=== PATIENT | male | born 1970 | race Caucasian/White ===

== ENCOUNTER 2018-09-15 11:29 | Observation (INO) ==
[2018-09-15 12:42] LABS: Hematocrit 40.5 % (37.5-50.1); Mean Corpuscular HGB Conc 32.1 g/dL (31.6-35.5); Mean Corpuscular Hemoglobin 30.1 pg (28.0-33.3); Mean Corpuscular Volume 93.8 fL (83.0-100.0); Platelet Count 222 K/mcL (140-400); Red Blood Count 4.32 M/mcL (4.19-5.50); Red Cell Distribution Width 12.5 % (11.5-14.5); White Blood Count 4.1 K/mcL (4.3-11.1)
[2018-09-15 13:23] LABS: BUN/Creatinine Ratio 9 (6-26); Blood Urea Nitrogen 11 mg/dL (6-20); Calcium 7.6 mg/dL (8.6-10.3); Carbon Dioxide 26 mEq/L (23-29); Chloride 104 mEq/L (98-107); Glucose 91 mg/dL (70-105); Osmolality,Calculated 281 (280-300); Potassium 3.9 mEq/L (3.5-5.1); Sodium 136 mEq/L (136-145); eGFR For African Americans > 60 (> 60); eGFR For Non-African Americans > 60 (> 60)
[2018-09-15 13:46] LABS: Lymphocytes # 1.6 K/mcL (0.6-4.6); Monocytes # 0.2 K/mcL (0.0-1.3); Neutrophils # 2.3 K/mcL (1.6-8.9); Platelet Estimate Normal (Normal); Reactive Lymphocytes Present (Not Present)
[2018-09-15] MEDS ORDERED: 0.9 % Sodium Chloride 1,000 ML IVC ONE ×3 (15:14→15:21)
--- NOTE | 2018-09-15 15:28 | Emergency Department Note ---
Disposition Clinical Impression: Dehydration, Ileus, Colitis Disposition: Admitted As Inpatient Condition: Fair Referrals: Chris Chadwick [Primary Care Provider] - Forms: ED Satisfaction Letter Time of Disposition: 19:02 General Adult HPI - General Chief complaint: ED Nausea/Vomiting/Diarrhea Stated complaint: diarrhea,weight loss,fever,headaches Time Seen by Provider: 09/15/18 14:53 Source: patient Limitations: no limitations Nursing Notes Reviewed: Yes Vital Signs Reviewed: Yes - History of Present Illness Pain Scale: 5 - Related Data Home Medications Medication Instructions Recorded Confirmed No Known Home Drugs 09/15/18 09/15/18 Allergies Allergy/AdvReac Type Severity Reaction Status Date / Time No Known Allergies Allergy Verified 10/21/14 10:50 Past Medical History - Past Medical History Medical history: Reports: no medical history Surgical history: Reports: appendectomy Psychiatric history: Reports: no psych history - Social History Smoking Status: Never smoker Smokeless Tobacco Status: No Alcohol use: Reports: none Drug use: Reports: none Physical Exam - General Limitations: no limitations General appearance: alert, in no apparent distress Course Vital Signs Temperature 98.1 F 09/15/18 11:32 Pulse Rate 85 09/15/18 11:32 Respiratory Rate 18 09/15/18 11:32 Blood Pressure 132/85 09/15/18 11:32 O2 Sat by Pulse Oximetry 97 09/15/18 11:32 Temperature 102.8 F H 09/15/18 16:00 Pulse Rate 94 09/15/18 17:38 Respiratory Rate 20 09/15/18 17:38 Blood Pressure 120/69 09/15/18 17:38 O2 Sat by Pulse Oximetry 97 09/15/18 15:30 Oxygen Delivery Oxygen Delivery Room Air Medical Decision Making - [facility] Narrative Medical decision making narrative: 1548 hrs.: Patient's getting fluids; he is feeling better today than he has in the past, he relates to me that he felt a lot better towards Saturday then his symptoms started up again; he has nonsurgical abdomen here. Waiting on a his records from the old facility. He has never had a colonoscopy before so he may need that in the future. He has a very dark urines were saying that down to see the status of the urinalysis. And then I think everything looks wandering in feeling better he can probably go home. He is in agreement with this plan. Abdomen/Pelvis CT 09/15/18 17:32 IMPRESSION: 1. Diffuse distension of the small bowel with increased small bowel fluid. Bowel wall thickening in the proximal jejunum. Colon is distended with gas. Overall appearance is that of ileus. Findings favor enteritis which could be on an infectious or inflammatory basis. 2. Mistiness in the mesentery and the upper and mid central abdomen with mild mesenteric lymphadenopathy. 3. Mild hepatomegaly without suspicious space-occupying mass lesion. Distended gallbladder without gallstones. 4. No bowel obstruction or appendicitis. D/ / 09/15/2018 18:41:32 Keri Lambert MD / los Interpreting Provider: Keri Lambert MD 184 hrs.: We will update the patient, I am and talk to surgery see if they have any suggestions and most likely admit for hospitalist of patient's agreeing. 1899 hrs.: Spoke with surgery she agreed that patient could come in with fluids nothing by mouth place him on Cipro and Flagyl and admit the hospitalist she is happy to consult hospitalist needs. Were updating patient and he is in agreement with plan. 0 hrs.: Spoke with hospitalist they are in agreement with the admission. Asked that on a set of blood cultures which we did. I have anabolic started down here and waiting for bed. - Lab Data Result diagrams: 09/15/18 12:29 09/15/18 12:29 Lab Results 09/15/18 09/15/18 09/15/18 Range/Units 12:29 12:29 15:20 WBC 4.1 L (4.3-11.1) K/mcL RBC 4.32 (4.19-5.50) M/mcL Hgb 13.0 (12.9-16.9) g/dL Hct 40.5 (37.5-50.1) % MCV 93.8 (83.0-100.0) fL MCH 30.1 (28.0-33.3) pg MCHC 32.1 (31.6-35.5) g/dL RDW 12.5 (11.5-14.5) % Plt Count 222 (140-400) K/mcL MPV 10.0 (9.4-12.4) fL Seg Neutrophils % 50.0 % Band Neutrophils % 6.0 H (0-4) % Lymphocytes % 40.0 % Monocytes % 4.0 % Neutrophils # 2.3 (1.6-8.9) K/mcL Lymphocytes # 1.6 (0.6-4.6) K/mcL Monocytes # 0.2 (0.0-1.3) K/mcL Reactive Lymphocytes Present A (Not Present) Platelet Estimate Normal (Normal) Sodium 136 (136-145) mEq/L Potassium 3.9 (3.5-5.1) mEq/L Chloride 104 (98-107) mEq/L Carbon Dioxide 26 (23-29) mEq/L BUN 11 (6-20) mg/dL Creatinine 1.22 (0.70-1.30) mg/dL Est GFR ( Amer) > 60 (> 60) Est GFR (Non-Af Amer) > 60 (> 60) BUN/Creatinine Ratio 9 (6-26) Glucose 91 (70-105) mg/dL Calculated Osmolality 281 (280-300) Calcium 7.6 L (8.6-10.3) mg/dL Total Bilirubin 0.4 (0.3-1.0) mg/dL Direct Bilirubin 0.1 (0.0-0.2) mg/dL Indirect Bilirubin 0.3 (0.0-1.2) mg/dL AST 36 (13-39) Units/L ALT 51 (7-52) Units/L Alkaline Phosphatase 112 H (34-104) Units/L Serum Total Protein 5.6 L (6.4-8.9) g/dL Albumin 3.2 L (3.5-5.7) g/dL Globulin 2.4 (2.4-3.5) g/dL Albumin/Globulin Ratio 1.3 (1.1-2.2) Urine Color Dark Yellow (Yellow) Urine Clarity Clear (Clear) Urine pH 5.5 (5.0-8.0) pH Units Ur Specific [place] > 1.030 H (1.010-1.025) Urine Protein 30 H (Neg-Trace) mg/dL Urine Glucose (UA) Normal (Normal) mg/dL Urine Ketones Negative (Negative) mg/dL Urine Blood Negative (Negative) Urine Nitrite Negative (Negative) Urine Bilirubin Small H (Negative) Urine Urobilinogen Normal (Normal) mg/dL Ur Leukocyte Esterase Negative (Negative) Urine Microscopic RBC 3-5 H (0-3) per hpf Urine Microscopic WBC 3-5 H (0-3) per hpf Ur Squamous Epith Cells Many H (None-Few) per lpf Urine Bacteria None Seen (None-Few) per hpf Ur Culture Indicated? NO (NO) Attestation Statement - Attestation Attestation: This documentation is done with the assistance of Dragon dictation. Despite efforts made to ensure accuracy, there may be inaccuracies in soccer ball assembler or spelling and typographical errors. I examined this patient and my medical decision-making was reviewed with the Resident Physician. I agree with the documented findings, disposition and treatment plan as described except to the extent set forth below. Patient was seen and evaluated by Dr. Strickland and myself, I agree with his evaluation and management plan, I supervised the care the patient throughout her stay. Multiple days of diarrhea and some nausea and weight loss Diarrhea resolved yesterday. He still not feeling well. There were seen in outside ER last weekend. Head CT scan which apparently was negative. We will try to get those results. He had labs done at triage which are fairly unremarkable. Rented fluids here urinalysis and then reassess. We will review his ED chart from the other facility if we get that. I reviewed the residents documentation and agree with the residents assessment and plan of care. I have personally had face to face time with the patient. (Brief History, Brief Exam, and MDM) I personally supervised and was present for the max/critical portions of the following procedures completed by the resident: EKG was read and interpreted by the ER resident, under my supervision, I agree with her interpretation.
--- NOTE | 2018-09-15 15:37 | Emergency Department Note ---
Disposition Clinical Impression: Dehydration, Ileus, Colitis Disposition: Admitted As Inpatient Condition: Fair Time of Disposition: 20:43 Nausea/Vomiting/Diarrhea HPI - General Chief complaint: ED Nausea/Vomiting/Diarrhea Stated complaint: diarrhea,weight loss,fever,headaches Time Seen by Provider: 09/15/18 14:53 Source: patient Limitations: no limitations - History of Present Illness HPI Narrative: 47-year-old male no significant past medical history presents after diarrhea for the last week and a half, including a 16 pound weight loss in that time, and fevers and chills off and on throughout. Patient was seen in [place] ED last Saturday, a CT of the abdomen showed an enlarged small bowel, and he was sent home with a diagnosis of intestinal flu, and was given dicyclomine 20 mg and diphenoxylate 2.5 mg to take at home. Patient is reporting no nausea vomiting anorexia. Does report abdominal pain rated at a 4 out of 10 described as a dull constant pain located periumbilically. Patient states the pain is mildly relieved after having a bowel movement but returns to its normal 4 out of 10 shortly after. Also reports that after eating or drinking, he has been belching much more than usual. Patient denies any smoking alcohol or drug history, though admits he did chew tobacco but quit 7 years ago. Patient does not have a primary care provider at this time, he saw Dr. Iniguez in the past and is scheduled to see Dr. Gupta, but has not established care with that physician - Related Data Home Medications Medication Instructions Recorded Confirmed No Known Home Drugs 09/15/18 09/15/18 Allergies Allergy/AdvReac Type Severity Reaction Status Date / Time No Known Allergies Allergy Verified 10/21/14 10:50 All systems ED: reviewed and negative except as stated. Review of Systems: As Per HPI Constitutional: Reports: fever, chills, weight change (Loss of 16 pounds over the last week and a half), night sweats Eyes: Denies: vision change Cardiovascular: Denies: chest pain, palpitations Respiratory: Denies: cough, dyspnea, hemoptysis Gastrointestinal: Reports: diarrhea (As per history of present illness). Denies: nausea, vomiting, hematemesis, melena, hematochezia Genitourinary: Denies: urgency, dysuria, frequency, hematuria Neurological: Denies: weakness, numbness, paresthesias Past Medical History - Past Medical History Medical history: Reports: no medical history Surgical history: Reports: appendectomy Psychiatric history: Reports: no psych history - Social History Smoking Status: Never smoker Smokeless Tobacco Status: No Alcohol use: Reports: none Drug use: Reports: none Physical Exam - General Limitations: no limitations General appearance: alert, in no apparent distress Course Vital Signs Temperature 98.1 F 09/15/18 11:32 Pulse Rate 85 09/15/18 11:32 Respiratory Rate 18 09/15/18 11:32 Blood Pressure 132/85 09/15/18 11:32 O2 Sat by Pulse Oximetry 97 09/15/18 11:32 Temperature 100.5 F H 09/15/18 19:35 Pulse Rate 84 09/15/18 20:38 Respiratory Rate 18 09/15/18 20:38 Blood Pressure 115/72 09/15/18 20:38 O2 Sat by Pulse Oximetry 96 09/15/18 20:38 Oxygen Delivery Oxygen Delivery Room Air Nausea/Vomiting/Diarrhea - [facility] Narrative Medical decision making narrative: Abdomen/Pelvis CT 09/15/18 17:32 IMPRESSION: 1. Diffuse distension of the small bowel with increased small bowel fluid. Bowel wall thickening in the proximal jejunum. Colon is distended with gas. Overall appearance is that of ileus. Findings favor enteritis which could be on an infectious or inflammatory basis. 2. Mistiness in the mesentery and the upper and mid central abdomen with mild mesenteric lymphadenopathy. 3. Mild hepatomegaly without suspicious space-occupying mass lesion. Distended gallbladder without gallstones. 4. No bowel obstruction or appendicitis. D/ / 09/15/2018 18:41:32 Keri Lambert MD / los Interpreting Provider: Keri Lambert MD Vital Signs Temperature 98.1 F 09/15/18 11:32 Pulse Rate 85 09/15/18 11:32 Respiratory Rate 18 09/15/18 11:32 Blood Pressure 132/85 09/15/18 11:32 O2 Sat by Pulse Oximetry 97 09/15/18 11:32 Temperature 98.1 F 09/15/18 11:32 Pulse Rate 94 09/15/18 17:38 Respiratory Rate 20 09/15/18 17:38 Blood Pressure 120/69 09/15/18 17:38 O2 Sat by Pulse Oximetry 97 09/15/18 15:30 Oxygen Delivery Oxygen Delivery Room Air - Lab Data Result diagrams: 09/15/18 12:29 09/15/18 12:29 Lab Results 09/15/18 09/15/18 09/15/18 Range/Units 12:29 12:29 15:20 WBC 4.1 L (4.3-11.1) K/mcL RBC 4.32 (4.19-5.50) M/mcL Hgb 13.0 (12.9-16.9) g/dL Hct 40.5 (37.5-50.1) % MCV 93.8 (83.0-100.0) fL MCH 30.1 (28.0-33.3) pg MCHC 32.1 (31.6-35.5) g/dL RDW 12.5 (11.5-14.5) % Plt Count 222 (140-400) K/mcL MPV 10.0 (9.4-12.4) fL Seg Neutrophils % 50.0 % Band Neutrophils % 6.0 H (0-4) % Lymphocytes % 40.0 % Monocytes % 4.0 % Neutrophils # 2.3 (1.6-8.9) K/mcL Lymphocytes # 1.6 (0.6-4.6) K/mcL Monocytes # 0.2 (0.0-1.3) K/mcL Reactive Lymphocytes Present A (Not Present) Platelet Estimate Normal (Normal) Sodium 136 (136-145) mEq/L Potassium 3.9 (3.5-5.1) mEq/L Chloride 104 (98-107) mEq/L Carbon Dioxide 26 (23-29) mEq/L BUN 11 (6-20) mg/dL Creatinine 1.22 (0.70-1.30) mg/dL Est GFR ( Amer) > 60 (> 60) Est GFR (Non-Af Amer) > 60 (> 60) BUN/Creatinine Ratio 9 (6-26) Glucose 91 (70-105) mg/dL Calculated Osmolality 281 (280-300) Calcium 7.6 L (8.6-10.3) mg/dL Total Bilirubin 0.4 (0.3-1.0) mg/dL Direct Bilirubin 0.1 (0.0-0.2) mg/dL Indirect Bilirubin 0.3 (0.0-1.2) mg/dL AST 36 (13-39) Units/L ALT 51 (7-52) Units/L Alkaline Phosphatase 112 H (34-104) Units/L Serum Total Protein 5.6 L (6.4-8.9) g/dL Albumin 3.2 L (3.5-5.7) g/dL Globulin 2.4 (2.4-3.5) g/dL Albumin/Globulin Ratio 1.3 (1.1-2.2) Urine Color Dark Yellow (Yellow) Urine Clarity Clear (Clear) Urine pH 5.5 (5.0-8.0) pH Units Ur Specific [place] > 1.030 H (1.010-1.025) Urine Protein 30 H (Neg-Trace) mg/dL Urine Glucose (UA) Normal (Normal) mg/dL Urine Ketones Negative (Negative) mg/dL Urine Blood Negative (Negative) Urine Nitrite Negative (Negative) Urine Bilirubin Small H (Negative) Urine Urobilinogen Normal (Normal) mg/dL Ur Leukocyte Esterase Negative (Negative) Urine Microscopic RBC 3-5 H (0-3) per hpf Urine Microscopic WBC 3-5 H (0-3) per hpf Ur Squamous Epith Cells Many H (None-Few) per lpf Urine Bacteria None Seen (None-Few) per hpf Ur Culture Indicated? NO (NO)
[2018-09-15 15:43] LABS: Alanine Aminotransferase 51 Units/L (7-52); Albumin 3.2 g/dL (3.5-5.7); Albumin/Globulin Ratio 1.3 (1.1-2.2); Alkaline Phosphatase 112 Units/L (34-104); Aspartate Amino Transferase 36 Units/L (13-39); Bilirubin,Direct 0.1 mg/dL (0.0-0.2); Bilirubin,Indirect 0.3 mg/dL (0.0-1.2); Bilirubin,Total 0.4 mg/dL (0.3-1.0); Globulin 2.4 g/dL (2.4-3.5); Total Protein 5.6 g/dL (6.4-8.9)
[2018-09-15 15:48] LABS: Bilirubin,Urine Small (Negative); Blood,Urine Negative (Negative); Clarity,Urine Clear (Clear); Color,Urine Dark Yellow (Yellow); Glucose,Urine (UA) Normal (Normal); Ketones,Urine Negative (Negative); Leukocyte Esterase,Urine Negative (Negative); Nitrite,Urine Negative (Negative); PH,Urine 5.5 pH Units (5.0-8.0); Protein,Urine 30 mg/dL (Neg-Trace); Specific Gravity,Urine > 1.030 (1.010-1.025); Urobilinogen,Urine Normal (Normal)
[2018-09-15 15:51] LABS: Bacteria,Urine None Seen per hpf (None-Few); Squamous Epithelial Cell,Urine Many per lpf (None-Few)
[2018-09-15] MEDS ORDERED: Acetaminophen 325 MG TABLET PO ONE (17:28)
[2018-09-15] MEDS ORDERED: Isovue-370 500 ML BOTTLE IVP ONE (17:32)
[2018-09-15] MEDS ORDERED: MetroNIDAZOLE 500 MG/100 ML 500 MG/100 ML BAG IVPB ONE (19:04)
--- NOTE | 2018-09-15 21:10 | Internal Med History&Physical ---
Date of Encounter: 09/15/18 Time of Encounter: 21:10 Internal Medicine - H&P: HPI Chief complaint: Abdominal pain History of present illness: Mr. Jules is a 47 year-old male no significant past medical history presents with persistent diarrhea associated with fever and chills to the extent that he lost significant amount of weight. The patient was evaluated at outside hospital ED and CAT scan of the abdomen revealed intraspinal flow patient was treated with dicyclomine and diphenoxylate 2.5 mg and was discharged to follow- up as outpatient, however his symptoms improved temporary and start worsening allergies is weak. CAT scan of the abdomen was obtained and revealed " Diffuse distension of the small bowel with increased small bowel fluid. Bowel wall thickening in the proximal jejunum. Colon is distended with gas. Overall appearance is that of ileus. Findings favor enteritis which could be on an infectious or inflammatory basis" Surgery was consulted in the ER and they recommended the patient will be admitted to the hospitalist service and they kavin l see the patient in consult, the patient was treated with Cipro for approximately and metronidazole for antritis and was admitted for further evaluation and management. Past Med Surg Social Fam HX - Past Medical History Medical history: no medical history Psychiatric history: no psych history - Past Surgical History Surgical History: appendectomy Additional surgical history: appy. left rotator cuff. hemmorrhoid - Social History Smoking Status: Never smoker Smokeless Tobacco Status: No Alcohol use: none Drug use: none - Family History Mother Living Status: Still Living Father Living Status: Still Living Hx Family Cardiac Disorders: Yes Hx Family Cancer: Yes (Colon) Hx Family Endocrine Disorder: Yes (DM) Internal Medicine - H&P: Meds No Known Home Drugs 09/15/18 [History] Allergy/AdvReac Type Severity Reaction Status Date / Time No Known Allergies Allergy Verified 10/21/14 10:50 All Systems PM: A 10-system review of systems was performed and is negative for pertinent findings except as documented above in the HPI. - Constitutional Vitals: Temp Pulse Resp BP Pulse Ox 100.5 F H 84 18 115/72 96 09/15/18 19:35 09/15/18 20:38 09/15/18 20:38 09/15/18 20:38 09/15/18 20:38 General appearance: Present: A&O X 3 Exam: ` - Head Head exam: Present: atraumatic, normocephalic - Neck Neck exam general surgery: Present: supple, trachea midline. Absent: lymp hadenopathy - Respiratory Respiratory exam: Present: CTAB. Absent: accessory muscle use, rales, rhonchi, wheezes - Cardiovascular Cardiovascular exam: Present: RRR, +S1, +S2. Absent: diastolic murmur, gallop, rubs, systolic murmur - GI/Abdominal GI/Abdominal exam: Present: normal bowel sounds, soft, no peritoneal signs. Absent: distended, tenderness - Extremities Exam Extremities exam: Present: warm, radial pulses palpable and symmetrical. Absent: calf tenderness, cyanotic, pedal edema Internal Med - H&P Results - Labs CBC & Chem 7: 09/18/18 06:45 09/18/18 06:45 Labs: Short CBC 09/15/18 Range/Units 12:29 WBC 4.1 L (4.3-11.1) K/mcL Hgb 13.0 (12.9-16.9) g/dL Hct 40.5 (37.5-50.1) % Plt Count 222 (140-400) K/mcL Neutrophils # 2.3 (1.6-8.9) K/mcL BMP 09/15/18 12:29 Sodium 136 Potassium 3.9 Chloride 104 Carbon Dioxide 26 BUN 11 Creatinine 1.22 Glucose 91 Calcium 7.6 L Liver Function 09/15/18 Range/Units 12:29 Total Bilirubin 0.4 (0.3-1.0) mg/dL Direct Bilirubin 0.1 (0.0-0.2) mg/dL AST 36 (13-39) Units/L ALT 51 (7-52) Units/L Alkaline Phosphatase 112 H (34-104) Units/L Albumin 3.2 L (3.5-5.7) g/dL Urine 09/15/18 Range/Units 15:20 Urine Color Dark Yellow (Yellow) Urine Clarity Clear (Clear) Urine pH 5.5 (5.0-8.0) pH Units Ur Specific [place] > 1.030 H (1.010-1.025) Urine Protein 30 H (Neg-Trace) mg/dL Urine Glucose (UA) Normal (Normal) mg/dL - Impressions ITS Impressions Abdomen/Pelvis CT 09/15/18 17:32 IMPRESSION: 1. Diffuse distension of the small bowel with increased small bowel fluid. Bowel wall thickening in the proximal jejunum. Colon is distended with gas. Overall appearance is that of ileus. Findings favor enteritis which could be on an infectious or inflammatory basis. No pneumatosis. 2. Mistiness in the mesentery and the upper and mid central abdomen with mild mesenteric lymphadenopathy. 3. Mild hepatomegaly without suspicious space-occupying mass lesion. Distended gallbladder without gallstones. 4. No bowel obstruction or appendicitis. D/ / 09/15/2018 18:41:32 Keri Lambert MD / los Interpreting Provider: Keri Lambert MD - Assessment and Plan (1) Colitis Current Visit: Yes Status: Acute Assessment and plan: We will start the patient on ciprofloxacin and metronidazole, the patient was eating [employer] sandwich in the ER, he stated that he can tolerate that fine, I ordered the record diet to be advanced as tolerated. (2) Ileus Current Visit: Yes Status: Acute Assessment and plan: Surgery was consulted for further evaluation and management (3) Dehydration Current Visit: Yes Status: Acute Assessment and plan: We will start IV hydration with isotonic saline, patient apparently is able to tolerate by mouth food since he was eating [employer] sandwich in the ER was no issues. - Time Spent With Patient Total time spent is greater than 50% in coordination of care (as documented) at patient's floor/unit and/or counseling patient:
[2018-09-15] MEDS ORDERED: Ondansetron 4 MG/2 ML VIAL IVP PRN (23:02)
[2018-09-15] MEDS ORDERED: Naloxone 0.4 MG/ML INJ IVP PRN (23:02)
[2018-09-16] MEDS ORDERED: MetroNIDAZOLE 500 MG/100 ML 500 MG/100 ML BAG IVPB SCH
[2018-09-16] MEDS: 0.9 % Sodium Chloride 1,000 ML IVC SCH ×2 (01:14→15:33)
[2018-09-16] MEDS ORDERED: Acetaminophen 325 MG TABLET PO ONE (04:19)
[2018-09-16] MEDS: MetroNIDAZOLE 500 MG/100 ML 500 MG/100 ML BAG IVPB SCH ×3 (04:35→20:17)
[2018-09-16 05:29] LABS: Basophils % 0.5 %; Eosinophils # 0.1 K/mcL (0.0-0.6); Eosinophils % 1.4 %; Hematocrit 36.8 % (37.5-50.1); Hemoglobin 11.8 g/dL (12.9-16.9); Immature Granulocytes % 0.2 % (0-4); Lymphocytes # 1.3 K/mcL (0.6-4.6); Lymphocytes % 31.1 %; Mean Corpuscular HGB Conc 32.1 g/dL (31.6-35.5); Mean Corpuscular Hemoglobin 29.5 pg (28.0-33.3); Mean Platelet Volume 10.5 fL (9.4-12.4); Monocytes # 0.3 K/mcL (0.0-1.3); Monocytes % 6.2 %; Platelet Count 201 K/mcL (140-400); Red Cell Distribution Width 12.7 % (11.5-14.5); Segmented Neutrophils % 60.6 %; White Blood Count 4.2 K/mcL (4.3-11.1)
[2018-09-16 05:34] LABS: Neutrophils # 2.6 K/mcL (1.6-8.9)
[2018-09-16 05:36] LABS: INR 1.1; Prothrombin Time 12.9 Seconds (9.4-12.1)
[2018-09-16] MEDS ORDERED: Acetaminophen IV 500 MG/50 ML INFUS..BTL IVPB ONE (05:37)
[2018-09-16 05:39] LABS: Activated Partial Thrombo Time 30.9 Seconds (26.0-36.0)
[2018-09-16 05:41] LABS: Alanine Aminotransferase 41 Units/L (7-52); Albumin 2.7 g/dL (3.5-5.7); Albumin/Globulin Ratio 1.2 (1.1-2.2); Alkaline Phosphatase 92 Units/L (34-104); Aspartate Amino Transferase 33 Units/L (13-39); BUN/Creatinine Ratio 8 (6-26); Bilirubin,Total 0.4 mg/dL (0.3-1.0); Blood Urea Nitrogen 9 mg/dL (6-20); Calcium 6.8 mg/dL (8.6-10.3); Carbon Dioxide 23 mEq/L (23-29); Chloride 108 mEq/L (98-107); Chol/HDL Ratio 4.9 (0-4.9); Cholesterol 68 mg/dL (< 200); Globulin 2.2 g/dL (2.4-3.5); Glucose 115 mg/dL (70-105); HDL Cholesterol 14 mg/dL (40-59); LDL Cholesterol,Calculated 34 mg/dL (0-99); Magnesium 1.8 mg/dL (1.6-2.6); Osmolality,Calculated 286 (280-300); Phosphorous 2.3 mg/dL (2.7-4.5); Sodium 138 mEq/L (136-145); Total Protein 4.9 g/dL (6.4-8.9); Triglycerides 99 mg/dL (< 150); eGFR For African Americans > 60 (> 60); eGFR For Non-African Americans > 60 (> 60)
[2018-09-16 05:56] LABS: Platelet Estimate Normal (Normal); Reactive Lymphocytes Present (Not Present)
--- NOTE | 2018-09-16 09:18 | Internal Med Progress Note ---
Hospitalist Progress Note - Encounter Date of Encounter: 09/16/18 Time of Encounter: 11:00 - Subjective Interval History: No acute events overnight - Exam Vitals: Temp Pulse Resp BP Pulse Ox 99.2 F 78 18 102/61 96 09/16/18 06:17 09/16/18 06:17 09/16/18 06:17 09/16/18 06:17 09/16/18 06:17 Exam: Gen. NAD. Ly ing comfortably in bed CVS. S1 S2 WNL Resp. CTAB GI. Mild epigastric tenderness, no abdominal distention Ext. 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 GCS 15 - Assessment and Plan (1) Colitis Current Visit: Yes Status: Acute Assessment and Plan: Pt comes in with abdominal pain with loose stools. CT abdomen showed colitis/ enteritis Obtain stool GI panel. Continue Iv fluids and ciprofloxacin and flagyl On clear liquid diet, advance as tolerated (2) Ileus Current Visit: Yes Status: Acute Assessment and Plan: Patient had ileus on CT. Surgery following. Monitor on clears (3) Dehydration Current Visit: Yes Status: Acute Assessment and Plan: Continue IV fluids (4) DVT prophylaxis Current Visit: Yes Status: Acute Assessment and Plan: SCDs - Time Spent with Patient Total time spent is greater than 50% in coordination of care (as documented) at patient's floor/unit and/or counseling patient: Internal Medicine: Result - Labs CBC & Chem 7: 09/16/18 04:15 09/16/18 04:15 Labs: Short CBC 09/15/18 09/16/18 Range/Units 12:29 04:15 WBC 4.1 L 4.2 L (4.3-11.1) K/mcL Hgb 13.0 11.8 L (12.9-16.9) g/dL Hct 40.5 36.8 L (37.5-50.1) % Plt Count 222 201 (140-400) K/mcL Neutrophils # 2.3 2.6 (1.6-8.9) K/mcL BMP 09/15/18 09/16/18 12:29 04:15 Sodium 136 138 Potassium 3.9 4.0 Chloride 104 108 H Carbon Dioxide 26 23 BUN 11 9 Creatinine 1.22 1.18 Glucose 91 115 H Calcium 7.6 L 6.8 L Liver Function 09/15/18 09/16/18 Range/Units 12:29 04:15 Total Bilirubin 0.4 0.4 (0.3-1.0) mg/dL Direct Bilirubin 0.1 (0.0-0.2) mg/dL AST 36 33 (13-39) Units/L ALT 51 41 (7-52) Units/L Alkaline Phosphatase 112 H 92 (34-104) Units/L Albumin 3.2 L 2.7 L (3.5-5.7) g/dL Urine 09/15/18 Range/Units 15:20 Urine Color Dark Yellow (Yellow) Urine Clarity Clear (Clear) Urine pH 5.5 (5.0-8.0) pH Units Ur Specific [place] > 1.030 H (1.010-1.025) Urine Protein 30 H (Neg-Trace) mg/dL Urine Glucose (UA) Normal (Normal) mg/dL - ABG Interpretation ABG results: PT/INR, D-dimer PT 12.9 Seconds (9.4-12.1) H 09/16/18 04:15 - Impressions Impressions Abdomen/Pelvis CT 09/15/18 17:32 IMPRESSION: 1. Diffuse distension of the small bowel with increased small bowel fluid. Bowel wall thickening in the proximal jejunum. Colon is distended with gas. Overall appearance is that of ileus. Findings favor enteritis which could be on an infectious or inflammatory basis. No pneumatosis. 2. Mistiness in the mesentery and the upper and mid central abdomen with mild mesenteric lymphadenopathy. 3. Mild hepatomegaly without suspicious space-occupying mass lesion. Distended gallbladder without gallstones. 4. No bowel obstruction or appendicitis. D/ / 09/15/2018 18:41:32 Keri Lambert MD / los Interpreting Provider: Keri Lambert MD Consult Discharge Plan - Plan Referrals: Chris Chadwick [Primary Care Provider] -
[2018-09-16] MEDS ORDERED: Calcium Gluconate 2,000 MG in 0.9 % Sodium Chloride 100 ML IVPB ONE (09:20)
[2018-09-16] MEDS: Pantoprazole 40 MG VIAL IVP SCH (15:31)
[2018-09-16] MEDS: Acetaminophen 325 MG TABLET PO PRN (17:54)
--- NOTE | 2018-09-16 21:03 | AcuteCare Surgery Consult Note ---
Date of Encounter: 09/16/18 Time of Encounter: 16:00 Assessment and Plan (1) Enteritis Current Visit: Yes Status: Acute NPO and IVF. Bowel rest. IV abx Cipro/Flagyl. Supportive care. No indications for surgery or endoscopy at this time. Continue current course. Surgery will sign off. Please, reconsult if pt condition changes. Thank you for allowing us to participate in this patient's care. History of Present Illness Consult date: 09/16/18 Reason for consult: abdominal pain Requesting physician: Preeti Man History of present illness: This 47 y/o male complains of abdominal pain and diarrhea for 1-2 weeks. He reports that he was seen previously in this course and treated for intestinal flu with bentyl. He reports that treatment did not improve his symptoms. He returns to [facility] and is admitted. He denies nausea or vomiting. He does report wt loss and poor appetite. Reports fever. Past Med Surg Social Fam HX - Past Medical History Medical history: no medical history Psychiatric history: no psych history - Past Surgical History Surgical History: appendectomy Additional surgical history: appy. left rotator cuff. hemmorrhoid - Social History Smoking Status: Never smoker Smokeless Tobacco Status: No Alcohol use: none Drug use: none - Family History Mother Living Status: Still Living Father Living Status: Still Living Hx Family Cardiac Disorders: Yes Hx Family Cancer: Yes (Colon) Hx Family Endocrine Disorder: Yes (DM) Medications and Allergies No Known Home Drugs 09/15/18 [History] Allergy/AdvReac Type Severity Reaction Status Date / Time No Known Allergies Allergy Verified 10/21/14 10:50 Review of Systems All systems PM: The remainder of the systems were reviewed and are negative - Constitutional as per HPI, anorexia, chills, fatigue, fever(s), weakness, weight loss, no excessive sweating, no night sweats - EENT Nose, mouth and throat: dry mouth, no dizziness, no nasal congestion, no nasal discharge, no sinus pain, no sinus pressure, no sore throat - Cardiovascular no chest pain, no diaphoresis, no dyspnea, no edema - Respiratory no cough, no dyspnea, no wheezing - Gastrointestinal abdominal pain, bloating, cramping, diarrhea, no belching, no constipation, no nausea, no vomiting - Genitourinary no dysuria, no flank pain, no urinary frequency - Musculoskeletal no back pain, no joint swelling, no limited range of motion, no neck pain - Integumentary dry skin, no pruritus, no rash, no wounds, no jaundice - Neurological no dizziness, no focal weakness, no weakness - Psychiatric no anxiety, no depression - Endocrine fatigue - Hematologic/Lymphatic no easy bleeding, no easy bruising General Surgery Exam Initial Vital Signs Temp Pulse Resp BP Pulse Ox 98.1 F 85 18 132/85 97 09/15/18 11:32 09/15/18 11:32 09/15/18 11:32 09/15/18 11:32 09/15/18 11:32 - General physical appearance well nourished, no distress, no pain. negative: jaundice - Eyes PERRL, normal ocular movement. negative: icteric - ENT no congestion, dry mucosa. negative: nasal discharge - Neck no masses, trachea midline, no lymphadectomy, no venous distension - Respiratory normal respiratory effort, clear to auscultation - Cardiovascular Cardiovascular exam: Present: RRR. Absent: murmurs, JVD - Abdomen Abdomen general surgery: Present: bowel sounds present (hypoactive), soft, distended, tender Abdominal Tenderness: Present: diffusely - Genitourinary Present: normal penis with no external lesions - Integumentary Integumentary general surgery: Present: warm and dry - Neurologic Present: CN 2-12 grossly intact, normal coordination - Musculoskeletal Present: normal posture - Psychiatric Psychiatric general surgery: Present: A&Ox3, appropriate Exam Initial Vital Signs Temp Pulse Resp BP Pulse Ox 98.1 F 85 18 132/85 97 09/15/18 11:32 09/15/18 11:32 09/15/18 11:32 09/15/18 11:32 09/15/18 11:32 Results - Labs 09/16/18 04:15 09/16/18 04:15 Abnormal lab results WBC 4.2 K/mcL (4.3-11.1) L 09/16/18 04:15 RBC 4.00 M/mcL (4.19-5.50) L 09/16/18 04:15 Hgb 11.8 g/dL (12.9-16.9) L 09/16/18 04:15 Hct 36.8 % (37.5-50.1) L 09/16/18 04:15 6.0 % (0-4) H 09/15/18 12:29 Present (Not Present) A 09/16/18 04:15 PT 12.9 Seconds (9.4-12.1) H 09/16/18 04:15 Chloride 108 mEq/L (98-107) H 09/16/18 04:15 Glucose 115 mg/dL (70-105) H 09/16/18 04:15 Calcium 6.8 mg/dL (8.6-10.3) L 09/16/18 04:15 Phosphorus 2.3 mg/dL (2.7-4.5) L 09/16/18 04:15 112 Units/L (34-104) H 09/15/18 12:29 4.9 g/dL (6.4-8.9) L 09/16/18 04:15 2.7 g/dL (3.5-5.7) L 09/16/18 04:15 2.2 g/dL (2.4-3.5) L 09/16/18 04:15 14 mg/dL (40-59) L 09/16/18 04:15 Ur Specific [place] > 1.030 (1.010-1.025) H 09/15/18 15:20 30 mg/dL (Neg-Trace) H 09/15/18 15:20 Small (Negative) H 09/15/18 15:20 3-5 per hpf (0-3) H 09/15/18 15:20 3-5 per hpf (0-3) H 09/15/18 15:20 Ur Squamous Epith Cells Many per lpf (None-Few) H 09/15/18 15:20 Diabetes panel 09/16/18 Range/Units 04:15 Sodium 138 (136-145) mEq/L Potassium 4.0 (3.5-5.1) mEq/L Chloride 108 H (98-107) mEq/L Carbon Dioxide 23 (23-29) mEq/L BUN 9 (6-20) mg/dL Creatinine 1.18 (0.70-1.30) mg/dL Glucose 115 H (70-105) mg/dL Calcium 6.8 L (8.6-10.3) mg/dL AST 33 (13-39) Units/L ALT 41 (7-52) Units/L Alkaline Phosphatase 92 (34-104) Units/L Albumin 2.7 L (3.5-5.7) g/dL Triglycerides 99 (< 150) mg/dL HDL Cholesterol 14 L (40-59) mg/dL Calcium panel 09/16/18 Range/Units 04:15 Calcium 6.8 L (8.6-10.3) mg/dL Phosphorus 2.3 L (2.7-4.5) mg/dL Albumin 2.7 L (3.5-5.7) g/dL Pituitary panel 09/16/18 Range/Units 04:15 Sodium 138 (136-145) mEq/L Potassium 4.0 (3.5-5.1) mEq/L Chloride 108 H (98-107) mEq/L Carbon Dioxide 23 (23-29) mEq/L BUN 9 (6-20) mg/dL Creatinine 1.18 (0.70-1.30) mg/dL Glucose 115 H (70-105) mg/dL Calcium 6.8 L (8.6-10.3) mg/dL Adrenal panel 09/16/18 Range/Units 04:15 Sodium 138 (136-145) mEq/L Potassium 4.0 (3.5-5.1) mEq/L Chloride 108 H (98-107) mEq/L Carbon Dioxide 23 (23-29) mEq/L BUN 9 (6-20) mg/dL Creatinine 1.18 (0.70-1.30) mg/dL Glucose 115 H (70-105) mg/dL Calcium 6.8 L (8.6-10.3) mg/dL Total Bilirubin 0.4 (0.3-1.0) mg/dL AST 33 (13-39) Units/L ALT 41 (7-52) Units/L Alkaline Phosphatase 92 (34-104) Units/L Albumin 2.7 L (3.5-5.7) g/dL All other labs normal. - Imaging CT scan - abdomen: image reviewed (dilated SB c/w ileus. No obstruction. no abcess) CT scan - pelvis: image reviewed Consult Discharge Plan - Plan Referrals: Chris Chadwick [Primary Care Provider] -
[2018-09-17] MEDS: Acetaminophen 325 MG TABLET PO PRN ×2 (03:32→14:30)
[2018-09-17] MEDS: MetroNIDAZOLE 500 MG/100 ML 500 MG/100 ML BAG IVPB SCH ×2 (04:29→12:58)
[2018-09-17 05:08] LABS: Basophils % 0.8 %; Hematocrit 34.7 % (37.5-50.1); Hemoglobin 11.3 g/dL (12.9-16.9); Immature Granulocytes % 0.5 % (0-4); Lymphocytes # 1.6 K/mcL (0.6-4.6); Lymphocytes % 39.2 %; Mean Corpuscular HGB Conc 32.6 g/dL (31.6-35.5); Mean Corpuscular Hemoglobin 29.7 pg (28.0-33.3); Mean Corpuscular Volume 91.1 fL (83.0-100.0); Mean Platelet Volume 10.2 fL (9.4-12.4); Monocytes # 0.3 K/mcL (0.0-1.3); Monocytes % 6.3 %; Neutrophils # 2.1 K/mcL (1.6-8.9); Platelet Count 192 K/mcL (140-400); Red Blood Count 3.81 M/mcL (4.19-5.50); Red Cell Distribution Width 12.8 % (11.5-14.5); Segmented Neutrophils % 52.2 %
[2018-09-17 05:27] LABS: BUN/Creatinine Ratio 5 (6-26); Blood Urea Nitrogen 5 mg/dL (6-20); Carbon Dioxide 22 mEq/L (23-29); Chloride 109 mEq/L (98-107); Glucose 112 mg/dL (70-105); Magnesium 1.6 mg/dL (1.6-2.6); Osmolality,Calculated 280 (280-300); Phosphorous 2.8 mg/dL (2.7-4.5); Potassium 3.8 mEq/L (3.5-5.1); Sodium 136 mEq/L (136-145); eGFR For African Americans > 60 (> 60); eGFR For Non-African Americans > 60 (> 60)
[2018-09-17 06:54] LABS: Platelet Estimate Normal (Normal); Reactive Lymphocytes Present (Not Present)
--- NOTE | 2018-09-17 09:14 | Internal Med Progress Note ---
<Mervat Sandhu - Last Filed: 09/17/18 14:26> Hospitalist Progress Note - Encounter Date of Encounter: 09/17/18 - Exam Vitals: Temp Pulse Resp BP Pulse Ox 102.3 F H 95 17 117/75 97 09/17/18 14:06 09/17/18 14:06 09/17/18 14:06 09/17/18 14:06 09/17/18 14:06 - Assessment and Plan (1) Dehydration Current Visit: Yes Status: Acute (2) Ileus Current Visit: Yes Status: Acute (3) Colitis Current Visit: Yes Status: Acute (4) DVT prophylaxis Current Visit: Yes Status: Acute - Time Spent with Patient Total time spent is greater than 50% in coordination of care (as documented) at patient's floor/unit and/or counseling patient: Internal Medicine: Result - Labs CBC & Chem 7: 09/17/18 04:49 09/17/18 04:49 Labs: Short CBC 09/17/18 Range/Units 04:49 WBC 4.0 L (4.3-11.1) K/mcL Hgb 11.3 L (12.9-16.9) g/dL Hct 34.7 L (37.5-50.1) % Plt Count 192 (140-400) K/mcL Neutrophils # 2.1 (1.6-8.9) K/mcL BMP 09/17/18 04:49 Sodium 136 Potassium 3.8 Chloride 109 H Carbon Dioxide 22 L BUN 5 L Creatinine 0.97 Glucose 112 H Calcium 7.0 L - ABG Interpretation ABG results: PT/INR, D-dimer PT 12.9 Seconds (9.4-12.1) H 09/16/18 04:15 Consult Discharge Plan - Plan Referrals: Chris Chadwick [Primary Care Provider] - - Attending Attestation I examined this patient and my medical decision-making was reviewed with the Resident Physician Dr Feliciano. I agree with the documented findings, disposition and treatment plan as described except to the extent set forth below. Mr Jules is being observed for enteritis awake, abd pain improving, no n/v with current diet. + fever overnight with sweats and chills. none this morning. gen- alert, awake,appears stated age, non toxic appearing eyes- pupils equal round , no scleral icterus cv- reg rate and rhythm, normal s1,s2, no murmurs appreciated lungs- ctabl, normal resp effort on room air abd- soft, non tender, non distended, + bs skin- no rash or jaundice neuro- AAOx3 Enteritis CT reviewed, there is some mild LAD suspected to be reactive -appreciate surgery input, no intervention required, given fevers without other identifiable cause change to zosyn, dc cipro + flagyl Ileus, improved, having bms- adat Fever suspected 2/2 Eteritis- repeat bl cxs and UA w reflex to cx, he has no pulm sxs, rashes or wounds, change abx as above and cont to monitor Hypomagnesemia- IV mag and cont to follow <Drake Feliciano - Last Filed: 09/17/18 19:06> Hospitalist Progress Note - Encounter Date of Encounter: 09/17/18 Time of Encounter: 08:00 - Subjective Interval History: Patient seen and examined at bedside this morning. Patient did progress to full liquids yesterday and reports no worsening of symptoms. Has no new complaints or concerns at this time. Appears significantly clinically improved since admission. Patient is passing gas and has had 2 bowel movements this morning, reported as loose and watery. Patient denies persistent nausea and/or bouts of emesis. Has had a fever overnight up to 102.5, requiring Tylenol, this afternoon he developed a fever of similar temperature. Cipro Flagyl were switched to Zosyn, blood cultures were obtained. - Exam Vitals: Temp Pulse Resp BP Pulse Ox 98.1 F 79 17 103/67 96 09/17/18 06:10 09/17/18 06:10 09/17/18 06:10 09/17/18 06:10 09/17/18 06:10 Exam: Gen.: No acute distress, alert and oriented HEENT: EOMI, oropharynx clear, mucous membranes moist CV: Regular rate and rhythm no murmurs gallops rubs Respiratory: Clear to auscultation bilaterally, no wheezes, rales, rhonchi Abdomen: Soft, nontender, nonrigid, nondistended, no organomegaly, bowel sounds present 4 Extremities: No evidence of peripheral edema, rashes Neuro: No focal neurological deficits, strength intact, sensation intact - Assessment and Plan (1) Colitis Current Visit: Yes Status: Acute Assessment and Plan: Patient with 1-2 weeks of loose watery stools, abdominal pain CT imaging revealed distended colon with gas Surgery consult obtained, no interventions indicated Cipro Flagyl enteric antibiotic prophylaxis (2) Ileus Current Visit: Yes Status: Acute Assessment and Plan: CT abdomen revealed this diffuse distention of the small bowel with increased small bowel fluid There was also bowel wall thickening in the proximal jejunal These findings were outbound sales representative of an ileus The patient was made nothing by mouth, surgery was consulted, no interventions necessary Cipro Flagyl or onboard Patient was progressed to full liquids yesterday and tolerated well Plan: -Advance diet as tolerated (3) Enteritis Current Visit: Yes Status: Acute Assessment and Plan: CT abdomen findings were suggestive of enteritis Possibly of an infectious and/or inflammatory nature Surgery consult to, no interventions recommended Patient made nothing by mouth and started on Cipro Flagyl On hospital day 2 patient did develop fevers during the night of 102.5 Patient again developed high fevers on hospital day 3 Blood cultures were ordered, ABX switched to Zosyn Plan: -We will follow-up with blood cultures -We will continue current antibiotics for now -We will continue to follow temperature -Patient does appear clinically improved despite fever DVT Prophylaxis: SCD - Time Spent with Patient Total time spent is greater than 50% in coordination of care (as documented) at patient's floor/unit and/or counseling patient: Internal Medicine: Result - Labs CBC & Chem 7: 09/17/18 04:49 09/17/18 04:49 Labs: Short CBC 09/17/18 Range/Units 04:49 WBC 4.0 L (4.3-11.1) K/mcL Hgb 11.3 L (12.9-16.9) g/dL Hct 34.7 L (37.5-50.1) % Plt Count 192 (140-400) K/mcL Neutrophils # 2.1 (1.6-8.9) K/mcL BMP 09/17/18 04:49 Sodium 136 Potassium 3.8 Chloride 109 H Carbon Dioxide 22 L BUN 5 L Creatinine 0.97 Glucose 112 H Calcium 7.0 L - ABG Interpretation ABG results: PT/INR, D-dimer PT 12.9 Seconds (9.4-12.1) H 09/16/18 04:15
[2018-09-17] MEDS: Pantoprazole 40 MG VIAL IVP SCH (10:01)
[2018-09-17] MEDS: Piperacillin/Tazobactam 3.375 GM in 0.9 % Sodium Chloride Mini Bag 100 ML IVPB SCH (16:39)
[2018-09-17 16:56] LABS: Bilirubin,Urine Negative (Negative); Blood,Urine Negative (Negative); Clarity,Urine Clear (Clear); Color,Urine Yellow (Yellow); Glucose,Urine (UA) Normal (Normal); Ketones,Urine Negative (Negative); Leukocyte Esterase,Urine Negative (Negative); Nitrite,Urine Negative (Negative); PH,Urine 6.5 pH Units (5.0-8.0); Protein,Urine Negative (Neg-Trace); Specific Gravity,Urine 1.006 (1.010-1.025); Urobilinogen,Urine Normal (Normal)
[2018-09-18] MEDS: Piperacillin/Tazobactam 3.375 GM in 0.9 % Sodium Chloride Mini Bag 100 ML IVPB SCH ×3 (00:02→18:23)
[2018-09-18] MEDS: Acetaminophen 325 MG TABLET PO PRN ×3 (00:02→20:28)
--- NOTE | 2018-09-18 06:22 | Electrocardiograph Report ---
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
--- NOTE | 2018-09-18 07:38 | Internal Med Progress Note ---
<Mervat Sandhu - Last Filed: 09/18/18 13:47> Hospitalist Progress Note - Encounter Date of Encounter: 09/18/18 - Exam Vitals: Temp Pulse Resp BP Pulse Ox 98.8 F 88 16 104/67 97 09/18/18 09:56 09/18/18 09:56 09/18/18 09:56 09/18/18 09:56 09/18/18 09:56 - Assessment and Plan (1) Dehydration Current Visit: Yes Status: Acute (2) Ileus Current Visit: Yes Status: Acute (3) Colitis Current Visit: Yes Status: Acute (4) DVT prophylaxis Current Visit: Yes Status: Acute - Time Spent with Patient Total time spent is greater than 50% in coordination of care (as documented) at patient's floor/unit and/or counseling patient: Internal Medicine: Result - Labs CBC & Chem 7: 09/18/18 06:45 09/18/18 06:45 Labs: Short CBC 09/18/18 Range/Units 06:45 WBC 4.6 (4.3-11.1) K/mcL Hgb 12.6 L (12.9-16.9) g/dL Hct 39.7 (37.5-50.1) % Plt Count 217 (140-400) K/mcL Neutrophils # 3.1 (1.6-8.9) K/mcL BMP 09/18/18 06:45 Sodium 138 Potassium 4.2 Chloride 106 Carbon Dioxide 24 BUN 8 Creatinine 1.20 Glucose 110 H Calcium 7.8 L Urine 09/17/18 Range/Units 16:43 Urine Color Yellow (Yellow) Urine Clarity Clear (Clear) Urine pH 6.5 (5.0-8.0) pH Units Ur Specific [place] 1.006 L (1.010-1.025) Urine Protein Negative (Neg-Trace) mg/dL Urine Glucose (UA) Normal (Normal) mg/dL - ABG Interpretation ABG results: PT/INR, D-dimer PT 12.9 Seconds (9.4-12.1) H 09/16/18 04:15 Consult Discharge Plan - Plan Referrals: Chris Chadwick [Primary Care Provider] - - Attending Attestation I examined this patient and my medical decision-making was reviewed with the Resident Physician Dr Feliciano. I agree with the documented findings, disposition and treatment plan as described except to the extent set forth below. Mr Jules is being observed for enteritis awake, at bedside. He has had no abd pain, n/v, no diarrhea, formed brown bm today, eating regular diet without issue. He is feeling great but cont to have overnight fever. He denies any other s/s of infection. Disucssed possibility of viral enteritis, but also perhaps required abx change which occurred yesterday. He and aware that after the acutely ill setting, if fevers should cont, this can be indicative of serious other illness and would require close fu with PCP and further work up. They voiced good understanding. He clinically feels back to baseline and has no complaints but agreeable to stay for further bl cx monitoring and fever monitoring. gen- alert, awake,appears stated age, non toxic appearing cv- reg rate and rhythm, normal s1,s2, no murmurs appreciated lungs- ctabl, normal resp effort on room air abd- soft, non tender, non distended, + bs neuro- AAOx3 Enteritis CT reviewed, there is some mild LAD suspected to be reactive -appreciate surgery input, no intervention required,cont zosyn, not having diarrhea therefore cannot send stool bacterial/viral cxs -if develops recurrence of sxs in setting of fever will re image at that time Ileus, resolved, having bms- adat Fever suspected 2/2 Eteritis at this time- repeat bl cxs remain ngtd, UA unremarkable, he has no pulm sxs, rashes or wounds ?viral etiology, cont zosyn, ideally would not have fever for 24 hr prior to jane le, monitor overnight, has slight bandemia (2) on today's CBC, will fu cbc in am <Drake Feliciano - Last Filed: 09/18/18 15:47> Hospitalist Progress Note - Encounter Date of Encounter: 09/18/18 Time of Encounter: 10:00 - Subjective Interval History: Jorge A was seen and examined at bedside this morning with present in room. He is symptomatically improved, and a full diet last night, no persisting abdominal pain nausea vomiting. He had 1 formed bowel movement in the evening and feels he is back at his baseline. However, he does continue to have persistently elevated fevers overnight to 102. He was switched to Zosyn after blood cultures were obtained, blood cultures showed no growth to date. - Exam Vitals: Temp Pulse Resp BP Pulse Ox 98.3 F 76 14 108/7 97 09/18/18 06:21 09/18/18 06:21 09/18/18 06:21 09/18/18 06:21 09/18/18 06:21 Exam: Gen.: No acute distress, alert and oriented HEENT: EOMI, oropharynx clear, mucous membranes moist CV: Regular rate and rhythm no murmurs gallops rubs Respiratory: Clear to auscultation bilaterally, no wheezes, rales, rhonchi Abdomen: Soft, nontender, nonrigid, nondistended, no organomegaly, bowel sounds present 4 Extremities: No evidence of peripheral edema, rashes Neuro: No focal neurological deficits, strength intact, sensation intact - Assessment and Plan (1) Pyrexia of unknown origin Current Visit: Yes Status: Acute Assessment and Plan: Patient continues to have persistently elevated fevers Appear to be worse at night and resolved during day Highest reading 102.5 Suspect secondary to viral enteritis at this time, blood cultures remain negative UA was unremarkable Rest of vitals have been stable, slightly leukopenic yesterday, white blood count normal today Denies any respiratory complaints, rashes, but bites Plan: -We will continue Zosyn for now for protection against bacterial enteritis -Presumed viral in nature, however if fevers persist patient will need extensive workup for fever of unknown origin by his PCP -Anticipate discharge in 24 hours (2) Enteritis Current Visit: Yes Status: Acute Assessment and Plan: CT abdomen suggestive of enteritis Patient exhibited bowel wall thickening Possibly infectious but also potentially inflammatory in nature Blood cultures show no growth to date Patient appears symptomatically improved, however continues to have persistently elevated fevers at night Cipro Flagyl were held, switched to Zosyn Patient does have a bandemia on CBC Plan: -Patient symptomatically improved, back to baseline -If no resolution of fevers in 24 hours we will send home for close follow-up with PCP to workup further causes of fever of unknown etiology (3) Ileus Current Visit: Yes Status: Acute Assessment and Plan: Patient presented with signs symptoms of an ileus CT abdomen revealed does use distention of small bowel, increased small bowel fluid Patient also exhibited bowel wall thickening in the proximal jejunum Surgery consult was obtained, no interventions indicated Patient made nothing by mouth, Cipro and Flagyl were started Patient's diet was advanced as tolerated patient symptomatically improved at this time Tolerated full diet last night, one brown bowel movement observed Abdominal pain resolved DVT Prophylaxis: SCD - Time Spent with Patient Total time spent is greater than 50% in coordination of care (as documented) at patient's floor/unit and/or counseling patient: Internal Medicine: Result - Labs CBC & Chem 7: 09/18/18 06:45 09/18/18 06:45 Labs: Urine 09/17/18 Range/Units 16:43 Urine Color Yellow (Yellow) Urine Clarity Clear (Clear) Urine pH 6.5 (5.0-8.0) pH Units Ur Specific [place] 1.006 L (1.010-1.025) Urine Protein Negative (Neg-Trace) mg/dL Urine Glucose (UA) Normal (Normal) mg/dL - ABG Interpretation ABG results: PT/INR, D-dimer PT 12.9 Seconds (9.4-12.1) H 09/16/18 04:15
[2018-09-18 07:55] LABS: Eosinophils # 0.1 K/mcL (0.0-0.6); Hematocrit 39.7 % (37.5-50.1); Hemoglobin 12.6 g/dL (12.9-16.9); Mean Corpuscular HGB Conc 31.7 g/dL (31.6-35.5); Mean Corpuscular Hemoglobin 29.7 pg (28.0-33.3); Mean Corpuscular Volume 93.6 fL (83.0-100.0); Mean Platelet Volume 10.1 fL (9.4-12.4); Platelet Count 217 K/mcL (140-400); Red Blood Count 4.24 M/mcL (4.19-5.50); Red Cell Distribution Width 12.9 % (11.5-14.5); White Blood Count 4.6 K/mcL (4.3-11.1)
[2018-09-18 07:58] LABS: BUN/Creatinine Ratio 7 (6-26); Blood Urea Nitrogen 8 mg/dL (6-20); Calcium 7.8 mg/dL (8.6-10.3); Carbon Dioxide 24 mEq/L (23-29); Chloride 106 mEq/L (98-107); Glucose 110 mg/dL (70-105); Magnesium 2.2 mg/dL (1.6-2.6); Osmolality,Calculated 285 (280-300); Phosphorous 3.8 mg/dL (2.7-4.5); Potassium 4.2 mEq/L (3.5-5.1); Sodium 138 mEq/L (136-145); eGFR For African Americans > 60 (> 60); eGFR For Non-African Americans > 60 (> 60)
[2018-09-18] MEDS: Pantoprazole 40 MG VIAL IVP SCH (08:32)
[2018-09-18 08:35] LABS: Basophils # 0.1 K/mcL (0.0-0.2); Lymphocytes # 1.1 K/mcL (0.6-4.6); Monocytes # 0.2 K/mcL (0.0-1.3); Neutrophils # 3.1 K/mcL (1.6-8.9); Platelet Estimate Normal (Normal)
[2018-09-19] MEDS: Piperacillin/Tazobactam 3.375 GM in 0.9 % Sodium Chloride Mini Bag 100 ML IVPB SCH ×3 (00:39→16:00)
[2018-09-19 06:33] LABS: Hematocrit 40.2 % (37.5-50.1); Hemoglobin 12.9 g/dL (12.9-16.9); Mean Corpuscular HGB Conc 32.1 g/dL (31.6-35.5); Mean Corpuscular Hemoglobin 29.3 pg (28.0-33.3); Mean Corpuscular Volume 91.2 fL (83.0-100.0); Mean Platelet Volume 10.3 fL (9.4-12.4); Platelet Count 225 K/mcL (140-400); Red Blood Count 4.41 M/mcL (4.19-5.50); White Blood Count 5.5 K/mcL (4.3-11.1)
[2018-09-19 06:52] LABS: Alanine Aminotransferase 177 Units/L (7-52); Albumin 2.7 g/dL (3.5-5.7); Alkaline Phosphatase 107 Units/L (34-104); Aspartate Amino Transferase 237 Units/L (13-39); BUN/Creatinine Ratio 5 (6-26); Bilirubin,Total 0.5 mg/dL (0.3-1.0); Blood Urea Nitrogen 6 mg/dL (6-20); Calcium 7.6 mg/dL (8.6-10.3); Carbon Dioxide 23 mEq/L (23-29); Chloride 105 mEq/L (98-107); Globulin 2.6 g/dL (2.4-3.5); Glucose 108 mg/dL (70-105); Osmolality,Calculated 280 (280-300); Potassium 4.2 mEq/L (3.5-5.1); Sodium 136 mEq/L (136-145); Total Protein 5.3 g/dL (6.4-8.9); eGFR For African Americans > 60 (> 60); eGFR For Non-African Americans > 60 (> 60)
[2018-09-19 07:28] LABS: Magnesium 1.9 mg/dL (1.6-2.6); Phosphorous 3.1 mg/dL (2.7-4.5)
[2018-09-19] MEDS: Pantoprazole 40 MG VIAL IVP SCH (08:38)
[2018-09-19 08:42] LABS: Eosinophils # 0.2 K/mcL (0.0-0.6); Lymphocytes # 2.3 K/mcL (0.6-4.6); Monocytes # 0.1 K/mcL (0.0-1.3); Neutrophils # 2.9 K/mcL (1.6-8.9)
[2018-09-19 08:43] LABS: Platelet Estimate Normal (Normal); Reactive Lymphocytes Present (Not Present)
--- NOTE | 2018-09-19 11:41 | Infectious Disease Consult ---
Infectious Disease-Consult - Encounter Date/Time Date of Encounter: 09/19/18 Time of Encounter: 11:30 - Data of Consult Requesting Physician: Mervat Sandhu Primary Care Provider: Chris Chadwick - [facility] HPI: Patient is a 47-year-old male with no significant past medical history who presented to he ED on 09/15/18 with complaints of diarrhea for the past week and a half. He reported a dull constant abdominal pain 4 out of 10 along with intermittent fevers. Of note patient was treated at an outside hospital ED at [place] and CT of the abdomen showed an enlarged small bowel and was sent home with a diagnosis of intestinal flu, was given dicyclomine 20 mg and diphenox ylate 2.5 mg to take at home. Patient said his symptoms improved temporarily but eventually started worsening. A week later, patient's presents to ED at our hospital with similar symptoms. In the ED, he met 1/4 SIRS criteria, with a Temp: 102.8, pulse 85, RR: 18, BP 132/85 , WBC:4.1 . Patient underwent abdominal /pelvis CT scan WITH CONTRAST which showed diffuse distention of the small bowel with increased small bowel fluid along with bowel thickening in the proximal jejunum. Findings of enteritis and appearance of ileus. There was also evidence of mild hepatomegaly without suspicious based occupying mass lesions and distended gallbladder without gallstones. There was no evidence of bowel obstruction or appendicitis. GI workup was not successful because of no liquid stools. He was given fluids in the ED on was put on Cipro and Flagyl and was admitted to the hospital for further management. His blood cultures have had no growth to date, urine urinalysis has been negative. He was seen by surgery and there was no indication for any intervention and it was recommended that patient continues to be on the current course of Cipro and Flagyl. Patient has been spiking intermittent fevers ever since admission with Tmax: 101.5, therefore decision was made to change his antibiotics from Cipro Flagyl to Zosyn. patient continues to still spiked fevers. Today patient's CBC shows elevated transaminases with AST: 237, ALT: 177, Alk Phos: 107, with Temp : 99.7,100.4 and 99.8 in last 12 hours. Patient has received 8 tablets of extra strength Tylenol ever since his admission to the hospital. Patient was A&O 3 when I met him. He denies any belly pain, SOB, diarrhea, vomiting ,or nausea - ROS Review of Systems: A 10-system review of systems was performed and is negative for pertinent findings except as documented above in the HPI. - Results CBC & Chem 7: 09/19/18 06:00 09/19/18 06:00 - Exam Vitals: Temp Pulse Resp BP Pulse Ox 99.8 F H 87 15 111/71 94 09/19/18 09:57 09/19/18 09:57 09/19/18 09:57 09/19/18 09:57 09/19/18 09:57 Exam: Gen.: Vitals noted. No acute distress. Alert, awake and oriented * [address], [address], and time, well developed, well-nourished resting comfortably in bed. Pleasant. HEENT: oropharynx clear, Normocephalic, atraumatic, MMM Neck: supple, no JVD, no lymphadenopathy, no carotid bruit. Cardiac: RRR, no murmur, +S1/S2, No BLE edema, PMI non-displaced Pulmonary: CTA bilaterally, no wheezes, rales or rhonchi, equal chest expansion, unlabored breathing Abdomen: soft, nontender, BS noted, no guarding, undistended. No organomegaly, no pulsatile masses, Skin: warm and dry, no visible lesions. Feels warm, clammy, no rashes, no lesions, no erythema MSK: ROM not assessed. no joint swelling noted, gait not assessed while in bed. Non tender calf or clubbing, no cyanosis/clubbing/ or edema Neuro: A&O, moves all extremities, no focal deficits, sensation intact Psych: Appropriate mood and behavior, normal speech. No Known Home Drugs 09/15/18 [History] Allergy/AdvReac Type Severity Reaction Status Date / Time No Known Allergies Allergy Verified 10/21/14 10:50 - Assessment and Plan (1) Sepsis Current Visit: Yes Status: Acute -Patient has been spiking intermittent fevers ever since his admission and even before, with MAXIMUM TEMPERATURE of 102.8 -Since her white blood count has been normal ever since his admission, with mild bandemia. Also had some reactive lymphocytes present - Today patient's CBC shows elevated transaminases with AST: 237, ALT: 177, Alk Phos: 107, with Temp : 99.7,100.4 and 99.8 in last 12 hours -Patient's blood culture *4 NGTD -Patient's CT scan showed evidence of mild hepatomegaly along with distended gallbladder. PLAN: - Hepatitis Panel to rule in /out Hepatitis SNOMED Code(s): 31781321 (2) Enteritis Current Visit: Yes Status: Acute -Etiology unclear at the moment . Highly unlikely infection is viral in etiology because of length of duration. Appears to be more bacterial /parasitic in nature . -Patient denies any sick contacts, any exposure to animals like turtles/ salamander /lizards or hamsters/chicken/goat/cows/horses. Patient's travel history is positive for [place] about 2 years ago. Other than that no recent travel history. He denies any history of inflammatory bowel disease like Crohn's. Denies Swimming -Patient presented with symptoms of nonbloody diarrhea due to pain for the past week and a half prior to admission. Currently his symptoms have resolved after being on the Cipro and Flagyl followed by Zosyn in the hospital. -Blood Cultures *4 NGTD -Patient continues to spike intermittent fevers despite being on Cipro and Flagyl followed by Zosyn -Patient needs to follow up with infectious disease / GI should he have recurrence of this diarrheal symptoms SNOMED Code(s): 72758020 (3) Ileus Current Visit: Yes Status: Acute Patient's CT abdominal pelvis showed evidence of bowel distention, bowel wall thickening in the proximal jejunum He underwent a course of antibiotics (Cipro and Flagyl for 3 days followed by Zosyn) Endorses no abdominal pain or diarrheal episodes at the moment. On exam he had normal bowel sounds with no evidence of guarding or rebound tenderness Patient is currently tolerating full diet SNOMED Code(s): 716546850 Past Med Surg Social Fam HX - Past Medical History Medical history: no medical history Psychiatric history: no psych history - Past Surgical History Surgical History: appendectomy Additional surgical history: appy. left rotator cuff. hemmorrhoid - Social History Smoking Status: Never smoker Smokeless Tobacco Status: No Alcohol use: none Drug use: none - Family History Mother Living Status: Still Living Father Living Status: Still Living Hx Family Cardiac Disorders: Yes Hx Family Cancer: Yes (Colon) Hx Family Endocrine Disorder: Yes (DM) Consult Discharge Plan - Plan Referrals: Chris Chadwick [Primary Care Provider] - - Attending Attestation I examined this patient and my medical decision-making was reviewed with the Resident Physician. I agree with the documented findings, disposition and treatment plan as described except to the extent set forth below. This is an addendum to original report dictated by resident physician. Please refer to resident's note for full detail. Patient is a 47-year-old gentleman who is otherwise healthy has no medical issue s lives at home in a house in [place] with his and 2 dogs. He does take care of a grandchild that is 6 months old that he sees once or twice a week. Patient denies having any turtles or salamander or lizards or hamsters or any other animals. No chickens no goats no cough no horses outside. Patient denies any sick contacts. 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 Patient denies any recent tickborne illness or recent takes. Patient denies anyone with similar symptoms at home. Patient denies having any symptoms like this in the past. Patient's travel history is positive to the [facility] about 2 years ago. Other than that no travel history. Patient denies any family history of inflammatory bowel disease including Crohn's. Patient denies swimming. Patient is a ivan but he has not vomited this year. Patient tells me about 2 weeks prior he started having abdominal pain is around the umbilical area nonradiating dull achy persistent. Associated with diarrhea between 4-7 watery diarrheas per day. Patient denied any blood in the stool. Patient denied any nausea or vomiting. He did have fevers chills and significant night sweats. Patient tells me now he is feeling great he is at 100%. He tells me he is tired because of not letting him sleep but other than that he denies any diarrhea. He had one bowel movement today at 12 and it was formed. Patient states that he has no longer has any fever or any abdominal pain. All his symptoms resolved on Saturday but continues to have fever Assessment and plan: 1.Sepsis on admission secondary to gastroenteritis 2.persistent fever - etiology not clear; infectious vs inflammatory vs lymphoma vs other? 3.Gastroenteritis etiology not clear likely infectious. Viral is lower on my differential because of the length duration of infection 4.Mildly elevated transaminitis. Etiology not clear. Might benefit from checking hepatitis A, B and C profile and HIV status Not sure why patient continues to have high grade fever at this point. Patient does not appear toxic. Recommend: Repeat blood cultures check HIV status, hepatitis A/B check procalcitonin check peripheral smear get GI panel repeat CT abdomen/pelvis with oral and IV contrast continue zosyn
--- NOTE | 2018-09-19 13:44 | Internal Med Progress Note ---
Hospitalist Progress Note - Encounter Date of Encounter: 09/19/18 - Exam Vitals: Temp Pulse Resp BP Pulse Ox 99.8 F H 87 15 111/71 94 09/19/18 09:57 09/19/18 09:57 09/19/18 09:57 09/19/18 09:57 09/19/18 09:57 - Assessment and Plan (1) Pyrexia of unknown origin Current Visit: Yes Status: Acute (2) Enteritis Current Visit: Yes Status: Acute (3) Ileus Current Visit: Yes Status: Acute - Time Spent with Patient Total time spent is greater than 50% in coordination of care (as documented) at patient's floor/unit and/or counseling patient: Internal Medicine: Result - Labs CBC & Chem 7: 09/19/18 06:00 09/19/18 06:00 Labs: Short CBC 09/19/18 Range/Units 06:00 WBC 5.5 (4.3-11.1) K/mcL Hgb 12.9 (12.9-16.9) g/dL Hct 40.2 (37.5-50.1) % Plt Count 225 (140-400) K/mcL Neutrophils # 2.9 (1.6-8.9) K/mcL BMP 09/19/18 06:00 Sodium 136 Potassium 4.2 Chloride 105 Carbon Dioxide 23 BUN 6 Creatinine 1.19 Glucose 108 H Calcium 7.6 L Liver Function 09/19/18 Range/Units 06:00 Total Bilirubin 0.5 (0.3-1.0) mg/dL AST 237 H (13-39) Units/L ALT 177 H (7-52) Units/L Alkaline Phosphatase 107 H (34-104) Units/L Albumin 2.7 L (3.5-5.7) g/dL - ABG Interpretation ABG results: PT/INR, D-dimer PT 12.9 Seconds (9.4-12.1) H 09/16/18 04:15 Consult Discharge Plan - Plan Referrals: Chris Chadwick [Primary Care Provider] -
--- NOTE | 2018-09-19 15:51 | Discharge Summary ---
Orders not resulted at time of discharge: Pending orders 09/15/18 19:40 Culture,Blood [BC] Stat 09/17/18 14:51 Culture,Blood [BC] Stat 09/19/18 21:00 Liver Ultrasound [US liver] [US] Routine 09/20/18 04:00 CBC [Complete Blood Count] [HEME] AM 0400 Magnesium AM 0400 PT/INR [Prothrombin Time INR] [COAG] AM 0400 Phosphorous AM 0400 09/21/18 04:00 CBC [Complete Blood Count] [HEME] AM 0400 Magnesium AM 0400 Phosphorous AM 0400 09/22/18 04:00 CBC [Complete Blood Count] [HEME] AM 0400 Magnesium AM 0400 Phosphorous AM 0400 Date of Encounter: 09/19/18 - Discharge Diagnosis (1) Pyrexia of unknown origin Status: Acute (2) Enteritis Status: Acute (3) Ileus Status: Acute Hospital course: Mr. Jules is a 47 year old male - Time Spent with Patient Total time spent providing and/or coordinating discharge services: - Discharge Medications Prescriptions: No Action No Known Home Drugs 1 each .ROUTE AD each Home Medications: No Known Home Drugs 09/15/18 [History] Allergies/Adverse Reactions: Allergy/AdvReac Type Severity Reaction Status Date / Time No Known Allergies Allergy Verified 10/21/14 10:50 Date of admission: 09/15/18 20:32 Primary care physician: Chris Chadwick Consults: 09/15/18 21:46 Consult to Nutrition [CONS] Routine Comment: Consulting Provider: NUTRITION Reason for Dietary Consult: MST Score 09/16/18 07:45 Consult to Surgery [CONS] Routine Consulting Provider: Acute Care Surgery Reason for Consult: Ileus, was completed by the ER staff however order for consult was not placed Call Completed: Yes 09/19/18 10:29 Consult to Infectious Diseases [CONS] Routine Consulting Provider: Infectious Disease Razia Reason for Consult: cyclical fever, enteritis Call Completed: Yes - Constitutional Vitals: Temp Pulse Resp BP Pulse Ox 100.0 F H 93 15 112/74 95 09/19/18 15:48 09/19/18 15:48 09/19/18 15:48 09/19/18 15:48 09/19/18 15:48 General appearance: Present: A&O X 3 - Patient Status Condition: Fair - Discharge Instructions Follow Up With: Chris Chadwick [Primary Care Provider] -
--- NOTE | 2018-09-19 16:24 | Internal Med Progress Note ---
<Drake Feliciano - Last Filed: 09/19/18 18:07> Hospitalist Progress Note - Encounter Date of Encounter: 09/19/18 Time of Encounter: 09:00 - Subjective Interval History: The patient was seen and examined at bedside, continues to report no return of symptoms. Uneventful overnight except for her current fever. Patient continues to have bowel movements and is a full appetite. He states that he believes these fevers are spiking reviewed after the infusion of his antibiotics. Of note he did have all abated liver enzymes, AST over 200. Bilirubin was within normal limits. Infectious disease was consulted for recommendations. Hepatitis panel was ordered right upper quadrant ultrasound was obtained. Pending the results of these the patient is medically stable for discharge with close follow-up with primary care provider for elucidation of the cause of his fevers. - Exam Vitals: Temp Pulse Resp BP Pulse Ox 100.0 F H 93 15 112/74 95 09/19/18 15:48 09/19/18 15:48 09/19/18 15:48 09/19/18 15:48 09/19/18 15:48 Exam: ` - Assessment and Plan (1) Pyrexia of unknown origin Current Visit: Yes Status: Acute Assessment and Plan: Patient continues to have persistently elevated fevers Appear to be worse at night and resolved during day Highest reading 102.5 Suspect secondary to viral enteritis at this time, blood cultures remain negative UA was unremarkable Rest of vitals have been stable, slightly leukopenic September 17, white blood count normal today Denies any respiratory complaints, rashes, but bites Patient reports these fevers are worse following the infusion of his antibiotics Patient did develop elevated LFTs this morning, AST 237, ALT 177. Alkaline phosphatase has been persistently elevated since admission, 107 today Infectious disease has been consulted, recommended hepatitis panel and HIV antigens, may discharge subsequent to results Right upper quadrant ultrasound has also been ordered, will follow up We will continue Zosyn for now, DC tomorrow prior to discharge (2) Enteritis Current Visit: Yes Status: Acute Assessment and Plan: CT abdomen suggestive of enteritis Patient exhibited bowel wall thickening Possibly infectious but also potentially inflammatory in nature Blood cultures show no growth to date Patient appears symptomatically improved, however continues to have persist ently elevated fevers at night Cipro Flagyl were held, switched to Zosyn Patient does have a bandemia on CBC Plan: -Patient symptomatically improved, back to baseline -Right upper quadrant ultrasound ordered, will follow up on results -Hepatitis panel, HIV antigens ordered -May discharge tomorrow pending results, follow-up with PCP and infectious disease clinic if no resolution of fevers (3) Ileus Current Visit: Yes Status: Acute Assessment and Plan: Patient presented with signs symptoms of an ileus CT abdomen revealed does use distention of small bowel, increased small bowel fluid Patient also exhibited bowel wall thickening in the proximal jejunum Surgery consult was obtained, no interventions indicated Patient made nothing by mouth, Cipro and Flagyl were started Patient's diet was advanced as tolerated patient symptomatically improved at this time Tolerated full diet last night, one brown bowel movement observed Abdominal pain resolved DVT Prophylaxis: SCD - Time Spent with Patient Total time spent is greater than 50% in coordination of care (as documented) at patient's floor/unit and/or counseling patient: Internal Medicine: Result - Labs CBC & Chem 7: 09/19/18 06:00 09/19/18 06:00 Labs: Short CBC 09/19/18 Range/Units 06:00 WBC 5.5 (4.3-11.1) K/mcL Hgb 12.9 (12.9-16.9) g/dL Hct 40.2 (37.5-50.1) % Plt Count 225 (140-400) K/mcL Neutrophils # 2.9 (1.6-8.9) K/mcL BMP 09/19/18 06:00 Sodium 136 Potassium 4.2 Chloride 105 Carbon Dioxide 23 BUN 6 Creatinine 1.19 Glucose 108 H Calcium 7.6 L Liver Function 09/19/18 Range/Units 06:00 Total Bilirubin 0.5 (0.3-1.0) mg/dL AST 237 H (13-39) Units/L ALT 177 H (7-52) Units/L Alkaline Phosphatase 107 H (34-104) Units/L Albumin 2.7 L (3.5-5.7) g/dL - ABG Interpretation ABG results: PT/INR, D-dimer PT 12.9 Seconds (9.4-12.1) H 09/16/18 04:15 Consult Discharge Plan - Plan Referrals: Chris Chadwick [Primary Care Provider] - <Mervat Sandhu - Last Filed: 09/19/18 19:49> Hospitalist Progress Note - Encounter Date of Encounter: 09/19/18 - Exam Vitals: Temp Pulse Resp BP Pulse Ox 100.0 F H 93 15 112/74 95 09/19/18 15:48 09/19/18 15:48 09/19/18 15:48 09/19/18 15:48 09/19/18 15:48 - Assessment and Plan (1) Ileus Current Visit: Yes Status: Acute (2) Enteritis Current Visit: Yes Status: Acute (3) Sepsis Current Visit: Yes Status: Acute - Time Spent with Patient Total time spent is greater than 50% in coordination of care (as documented) at patient's floor/unit and/or counseling patient: Internal Medicine: Result - Labs CBC & Chem 7: 09/19/18 06:00 09/19/18 06:00 Labs: Short CBC 09/19/18 Range/Units 06:00 WBC 5.5 (4.3-11.1) K/mcL Hgb 12.9 (12.9-16.9) g/dL Hct 40.2 (37.5-50.1) % Plt Count 225 (140-400) K/mcL Neutrophils # 2.9 (1.6-8.9) K/mcL BMP 09/19/18 06:00 Sodium 136 Potassium 4.2 Chloride 105 Carbon Dioxide 23 BUN 6 Creatinine 1.19 Glucose 108 H Calcium 7.6 L Liver Function 09/19/18 Range/Units 06:00 Total Bilirubin 0.5 (0.3-1.0) mg/dL AST 237 H (13-39) Units/L ALT 177 H (7-52) Units/L Alkaline Phosphatase 107 H (34-104) Units/L Albumin 2.7 L (3.5-5.7) g/dL - ABG Interpretation ABG results: PT/INR, D-dimer PT 12.9 Seconds (9.4-12.1) H 09/16/18 04:15 - Attending Attestation I examined this patient and my medical decision-making was reviewed with the Resident Physician Dr Feliciano. I agree with the documented findings, disposition and treatment plan as described except to the extent set forth below. Mr Jules is being observed for enteritis awake, at bedside. cont to have fevers but otherwise feeling well and enteritis appears resolved. no abd pain, n/v. agreeable to ID consult gen- alert, awake,appears stated age cv- reg rate and rhythm, normal s1,s2, lungs- ctabl, normal resp effort on room air abd- soft, non tender, non distended, + bs neuro- AAOx3 Enteritis CT reviewed, there is some mild LAD suspected to be reactive -appreciate surgery input, no intervention required,cont zosyn, not having diarrhea therefore cannot send stool bacterial/viral cxs -if develops recurrence of sxs in setting of fever will re image at that time Ileus, resolved, having bms- adat Fever suspected 2/2 Eteritis but cont to have fevers- repeat bl cxs remain ngtd, UA unremarkable, he has no pulm sxs, rashes or wounds ?viral etiology, cont zosyn, ID consulted, checking hiv and hepatitis per their rec Transamnitis, mild- will repeat in am, check RUQ US
[2018-09-19] MEDS ORDERED: Isovue-370 500 ML BOTTLE IVP ONE (23:36)
[2018-09-20] MEDS: Piperacillin/Tazobactam 3.375 GM in 0.9 % Sodium Chloride Mini Bag 100 ML IVPB SCH ×3 (00:13→16:17)
[2018-09-20 00:43] LABS: Basophils # 0.1 K/mcL (0.0-0.2); Basophils % 1.3 %; Eosinophils % 0.3 %; Hematocrit 36.7 % (37.5-50.1); Hemoglobin 12.1 g/dL (12.9-16.9); Immature Granulocytes % 0.3 % (0-4); Lymphocytes # 3.4 K/mcL (0.6-4.6); Lymphocytes % 53.2 %; Mean Corpuscular Hemoglobin 29.7 pg (28.0-33.3); Mean Corpuscular Volume 90.2 fL (83.0-100.0); Mean Platelet Volume 10.1 fL (9.4-12.4); Monocytes # 0.3 K/mcL (0.0-1.3); Monocytes % 4.6 %; Neutrophils # 2.6 K/mcL (1.6-8.9); Platelet Count 212 K/mcL (140-400); Red Blood Count 4.07 M/mcL (4.19-5.50); Segmented Neutrophils % 40.3 %; White Blood Count 6.4 K/mcL (4.3-11.1)
[2018-09-20 00:53] LABS: INR 1.3; Prothrombin Time 14.4 Seconds (9.4-12.1)
[2018-09-20 01:03] LABS: Alanine Aminotransferase 205 Units/L (7-52); Albumin 2.8 g/dL (3.5-5.7); Albumin/Globulin Ratio 1.2 (1.1-2.2); Alkaline Phosphatase 93 Units/L (34-104); Aspartate Amino Transferase 256 Units/L (13-39); BUN/Creatinine Ratio 7 (6-26); Bilirubin,Total 0.4 mg/dL (0.3-1.0); Blood Urea Nitrogen 8 mg/dL (6-20); Calcium 7.4 mg/dL (8.6-10.3); Carbon Dioxide 21 mEq/L (23-29); Chloride 105 mEq/L (98-107); Globulin 2.3 g/dL (2.4-3.5); Glucose 116 mg/dL (70-105); Magnesium 1.9 mg/dL (1.6-2.6); Osmolality,Calculated 273 (280-300); Phosphorous 3.2 mg/dL (2.7-4.5); Potassium 4.2 mEq/L (3.5-5.1); Sodium 132 mEq/L (136-145); Total Protein 5.1 g/dL (6.4-8.9); eGFR For African Americans > 60 (> 60); eGFR For Non-African Americans > 60 (> 60)
[2018-09-20 01:08] LABS: Platelet Estimate Normal (Normal); Smudge Cells Present (Not Present)
[2018-09-20 03:34] LABS: Hepatitis B Surface Antigen Nonreactive (Nonreactive)
[2018-09-20 04:02] LABS: Hepatitis C Virus Antibody Nonreactive (Nonreactive)
[2018-09-20 04:03] LABS: HIV-1&2 Antibody & p24 Ag Nonreactive (Nonreactive); Hepatitis B Core IgM Nonreactive (Nonreactive)
[2018-09-20 04:05] LABS: Hepatitis A Antibody IgM Nonreactive (Nonreactive)
[2018-09-20 04:53] LABS: Adenovirus F 40/41 PCR Not detected (Not detect); Astrovirus PCR Not detected (Not detect); C.difficile Toxin A/B Gene PCR Not detected (Not detect); Campylobacter by PCR Not detected (Not detect); Cryptosporidium by PCR Not detected (Not detect); Cyclospora cayetanensis PCR Not detected (Not detect); Entamoeba histolytica PCR Not detected (Not detect); Enteroaggregative E.coli(EAEC) Not detected (Not detect); Enteropathogenic E.coli(EPEC) Not detected (Not detect); Enterotoxigenic E.coli (ETEC) Not detected (Not detect); Giardia lamblia PCR Not detected (Not detect); Norovirus GI/GII PCR Not detected (Not detect); Plesiomonas shigelloides PCR Not detected (Not detect); Rotavirus A PCR Not detected (Not detect); Salmonella PCR Not detected (Not detect); Sapovirus PCR Not detected (Not detect); Shig/EnteroinvasiveE coli EIEC Not detected (Not detect); Shigalike tox-prod E coli STEC Not detected (Not detect); Vibrio PCR Not detected (Not detect); Vibrio cholerae PCR Not detected (Not detect); Yersinia enterocolitica PCR Not detected (Not detect)
--- NOTE | 2018-09-20 08:39 | Internal Med Progress Note ---
Hospitalist Progress Note - Encounter Date of Encounter: 09/20/18 - Exam Vitals: Temp Pulse Resp BP Pulse Ox 99.9 F H 94 18 123/82 95 09/20/18 06:25 09/20/18 06:25 09/20/18 06:25 09/20/18 06:25 09/20/18 06:25 - Assessment and Plan (1) Ileus Current Visit: Yes Status: Acute (2) Enteritis Current Visit: Yes Status: Acute (3) Sepsis Current Visit: Yes Status: Acute - Time Spent with Patient Total time spent is greater than 50% in coordination of care (as documented) at patient's floor/unit and/or counseling patient: Internal Medicine: Result - Labs CBC & Chem 7: 09/20/18 00:20 09/20/18 00:20 Labs: Short CBC 09/19/18 09/20/18 Range/Units 06:00 00:20 WBC 6.4 (4.3-11.1) K/mcL Hgb 12.1 L (12.9-16.9) g/dL Hct 36.7 L (37.5-50.1) % Plt Count 212 (140-400) K/mcL Neutrophils # 2.9 2.6 (1.6-8.9) K/mcL BMP 09/20/18 00:20 Sodium 132 L Potassium 4.2 Chloride 105 Carbon Dioxide 21 L BUN 8 Creatinine 1.23 Glucose 116 H Calcium 7.4 L Liver Function 09/20/18 Range/Units 00:20 Total Bilirubin 0.4 (0.3-1.0) mg/dL AST 256 H (13-39) Units/L ALT 205 H (7-52) Units/L Alkaline Phosphatase 93 (34-104) Units/L Albumin 2.8 L (3.5-5.7) g/dL - ABG Interpretation ABG results: PT/INR, D-dimer PT 14.4 Seconds (9.4-12.1) H 09/20/18 00:20 - Impressions Impressions Liver Ultrasound 09/19/18 21:00 IMPRESSION: Unremarkable right upper quadrant ultrasound. D/ / Issa Skaggs MD / Issa Skaggs MD Interpreting Provider: Issa Skaggs MD Consult Discharge Plan - Plan Referrals: Chris Chadwick [Primary Care Provider] -
[2018-09-20] MEDS: Pantoprazole 40 MG VIAL IVP SCH (09:01)
[2018-09-20] MEDS ORDERED: Isovue-370 500 ML BOTTLE PO ONE (09:16)
[2018-09-20] MEDS ORDERED: Isovue-370 500 ML BOTTLE IVP ONE (11:51)
--- NOTE | 2018-09-20 15:08 | Discharge Summary ---
- NOTES TO OUTPATIENT PROVIDER Notes to Outpatient Provider: transferred to [facility]. Here with diarrhea/fevers and CT scan with enteritis. Symptoms resolved with IV abx but remained febrile. Family requested transfer to [place] for further eval Orders not resulted at time of discharge: Pending orders 09/15/18 19:40 Culture,Blood [BC] Stat 09/17/18 14:51 Culture,Blood [BC] Stat 09/19/18 23:36 Culture,Blood [BC] Routine 09/20/18 00:20 KEREN IgG GABRIELA rflx IFA AM 0400 Hepatitis A Antibody Total AM 0400 09/20/18 14:50 Ehrlichia chaffeensis IgG/IgM Routine 09/20/18 14:51 Peripheral Bld Flow Routine 09/21/18 04:00 CBC [Complete Blood Count] [HEME] AM 0400 CBC [Complete Blood Count] [HEME] AM 0400 Hepatic Panel AM 0400 Magnesium AM 0400 Phosphorous AM 0400 09/22/18 04:00 CBC [Complete Blood Count] [HEME] AM 0400 Magnesium AM 0400 Phosphorous AM 0400 Date of Encounter: 09/20/18 Time of Encounter: 09:45 - Discharge Diagnosis (1) Enteritis Priority: Primary Status: Acute Assessment and Plan: CT A/P 09/15/18 1. Diffuse distension of the small bowel with increased small bowel fluid. Bowel wall thickening in the proximal jejunum. Colon is distended with gas. Overall appearance is that of ileus. Findings favor enteritis which could be on an infectious or inflammatory basis. No pneumatosis. 2. Mistiness in the mesentery and the upper and mid central abdomen with mild mesenteric lymphadenopathy. 3. Mild hepatomegaly without suspicious space-occupying mass lesion. Distended gallbladder without gallstones. 4. No bowel obstruction or appendicitis. Blood cultures 09/15, 09/17 and 09/[address] A/P 09/20/18 Persistent mild distention of multiple small bowel loops with involvement of likely jejunum and proximal to mid ileum without focal transition point. Mild likely superimposed low-attenuation wall thickening involving some jejunal loops, similar to prior exam. Contrast has progressed through the dilated loops of small bowel into normal caliber distal ileum but have not yet progressed into the large bowel. Findings are felt to be compatible with nonspecific infectious/inflammatory enteritis with superimposed ileus or possibly low-grade small bowel obstruction. Fluid present within the large bowel which otherwise appears unremarkable. Correlate clinically as to diarrhea. Stable mild splenomegaly. Stable mild haziness to the mesentery along with some shotty mesenteric lymph nodes, some of which are mildly enlarged. Findings are nonspecific and could be reactive or could reflect sclerosing mesenteritis. as d/w surgeon, he has no signs or symptoms of SBO, no diarrhea, n/v, toelrating regular diet with soft formed brown stools was on cipro + flagyl, chaged to zosyn for continued fevers, total abx course has been 5 days -GI was not consulted on admission due to suspicion after surgery eval for likely infectious enteritis and clinical improvement in symptoms quickly after initiation of abx treatment. It was continued fevers that prompted further evaluation and unfortunately as work up was being completed with more information gathered it became the weekend -GI consult ordered 09/20 (a Saturday) with repeat CT scan today, but could not guarantee to pt he would be seen by Saturday, therefore requested transfer. (2) Fever Priority: Secondary Status: Acute Assessment and Plan: Bl cxs multiple sets negative as above HIV and Hepatitis screens negative RUQ Liver US negative CTs as above- mild hepatosplenomegaly UA unremarkable No signs or symptoms of respiratory infection, no skin changes/rashes or wounds ID team followed Oncology consulted and wanted addl testing and possible bone marrow biopsy but he requested transfer prior to being able to be seen Qualifiers: Fever type: unspecified Qualified Code(s): R50.9 - Fever, unspecified (3) Ileus Priority: Secondary Status: Resolved Assessment and Plan: resolved clinically for days upon transfer (4) Transaminitis Priority: Secondary Status: Acute Assessment and Plan: 09/19 and 09/20 labs with mild elevations in AST/ALT, slight uptrend (200s) with alk phos 93-107 and normal T bili. INR 1.3 Normal Liver US and CT scans as above with mild hepatosplenomagaly Hospital course: Mr. Jules is a 47 year old male with no significant past med hx who presented 09/15/18 for diarrhea/fevers/chills/weight loss. Admitting CT a/p showed Diffuse distension of the small bowel with increased small bowel fluid, Bowel wall thickening in the proximal jejunum, Colon distended with gas, Overall appearance of ileus. Findings favored enteritis which could be on an infectious or inflammatory. Incidentally there was mild hepatomegaly but with normal transaminases and T bili. Acute care surgery evaluated pt at time of admit and followed as data migration consultant. No surgical intervention was recommended and he was started on treatment with cipro and flagyl for enteritis. 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 Abx was changed to zosyn and he was monitored further. He clinically returned to baseline but continued with fevers. On 09/19 cmp revealed a mild transaminitis, normal T bili. Given his continued fevers ID was consulted and RUQ US checked. RUQ US was normal, hepatitis and HIV screens were negative for infection. On 09/20/18 am I received a call from ID attending who recommended repeat CT scan to assess for continued enteritis or possible fluid collection to account for cont fevers and recommended Oncology consult given there did not appear on cbc to be infectious process ongoing and diff w smudge cells. Repeat CT scan showed continued enteritis, and no significant changes from prior. Acute care surgeon reviewed imaging and discussed case. He has no s/s of enteritis at this time, though persistent disease thought now perhaps to not be infectious and possibly inflammatory. He clinically shows no signs of sbo. She recommended GI consult and order placed, however, given it is the weekend GI service here is not available for routine evals. This was not acceptable to his family and they requested transfer to facility that has / GI team. Oncologly was consulted and case discussed. Plan was to obtain peripheral smear, flow cytometry and discuss potential bone marrow bx with pt, however, given they requested transfer these orders were held and transfer to [place] initiated. full details of work up can be found under the diagnoses section of this document Discharge discussed with: patient, family, nurse, data migration consultant - Time Spent with Patient Time spent: Greater than 30 minutes (60 min) - Discharge Medications Prescriptions: No Action No Known Home Drugs 1 each .ROUTE AD each Home Medications: No Known Home Drugs 09/15/18 [History] Allergies/Adverse Reactions: Allergy/AdvReac Type Severity Reaction Status Date / Time No Known Allergies Allergy Verified 10/21/14 10:50 Date of admission: 09/15/18 20:32 Primary care physician: Chris Chadwick Consults: 09/15/18 21:46 Consult to Nutrition [CONS] Routine Comment: Consulting Provider: NUTRITION Reason for Dietary Consult: MST Score 09/16/18 07:45 Consult to Surgery [CONS] Routine Consulting Provider: Acute Care Surgery Reason for Consult: Ileus, was completed by the ER staff however order for consult was not placed Call Completed: Yes 09/19/18 10:29 Consult to Infectious Diseases [CONS] Routine Consulting Provider: Infectious Disease [facility] Reason for Consult: cyclical fever, enteritis Call Completed: Yes 09/20/18 13:49 Consult to Oncology [CONS] Routine Consulting Provider: Oncology [facility] Reason for Consult: nighttime fevers, with clinically resolved enteritis, have discussed with ID, would appreciate Onc eval this weekend to determine if there could be underlying hematologic malignancy Call Completed: Yes 09/20/18 14:00 Consult to Gastroenterology [CONS] Routine Consulting Provider: [facility] Reason for Consult: enteritis, clinically improved, but remains febrile and persistent findngs on CT scan. Please eval for ? inflammatory bowel disease, treatment recs (communicated to Dr Diana by Acute Care surgery) Call Completed: Yes Discharging clinician: Mervat Sandhu - Constitutional Vitals: Temp Pulse Resp BP Pulse Ox 99.3 F 83 16 104/70 94 09/20/18 10:41 09/20/18 10:41 09/20/18 10:41 09/20/18 10:41 09/20/18 10:41 General appearance: Present: A&O X 3 Exam: gen- alert, awake,appears stated age ENT- mmm, no thrush cv- reg rate and rhythm, normal s1,s2, no le edema, no jvd lungs- ctabl, normal resp effort on room air abd- soft, non tender, non distended, + bs, cannot appreciate HSM skin- warm, dry, no jaundice, no rash neuro- AAOx3 - Patient Status Disposition: Transfer Critical Access Hosp Condition: Good Overall status at discharge: patient is back to baseline - Discharge Instructions Follow Up With: Chris Chadwick [Primary Care Provider] - - Diet and Activity Activity: increase activity as tolerated Diet: advance to your usual diet
[2018-09-20 15:21] VITALS: BP 110/68
--- NOTE | 2018-09-20 19:31 | Event Note ---
Date of Encounter: 09/20/18 Time of Encounter: 19:27 Discussed with infectious disease this afternoon. Hematology consult requested because of smudge cells. Patient admitted with gastroenteritis type presentation. His symptoms apparently resolved. He is been spiking fevers in the evening. Viral hepatitis panel and HIV negative. Elevated liver enzymes AST 256 and ALT 205 on 09/20/2018. Liver enzymes are normal on 09/16/2018. CT abdomen and pelvis with contrast 09/15/2018 showed persistent mild distention of multiple small bowel loops with involvement of jejunum and proximal to mid ileum. Contrast did not progress to large bowel. Given fever and transaminitis I ordered Ehrlichia antibody. Peripheral smear showed smudge cells but they may not be specific for CLL. His differential count is unremarkable. On 09/20/2018 lymphocytes 3400 neutrophils 2600. Platelets 212. Hemoglobin 12.1 with normal on admission. Patient was transferred to [place] before I could talk to him at 7 PM
[2018-09-22 10:58] LABS: Hepatitis A Antibody Total NEGATIVE (Negative)
[2018-09-22 11:14] LABS: ANA IgG by ELISA NONE DETECTED (None Detected)
== END 2018-09-20 17:05 | disposition critical access hospital (66) ==
LOC: EMEROOARM 11:29 → 3ANU 11:29 → SUATTDRO 20:32 → 3ANU 20:59
PROVIDERS: ADMIT Internal Medicine Nephrology; ATTEND Internal Medicine